=== PATIENT | female | born 1990 | race Caucasian/White ===

== ENCOUNTER 2016-11-21 17:33 | Emergency (ER) | payer OTHER ==
[~2016-11-21] VITALS: Ht 160 cm; Wt 89.4 kg
[2016-11-21 22:00] VITALS: BP 127/87
== END 2016-11-21 22:00 | disposition home or self-care (01) ==
LOC: ED 17:33
DX: M79.674 Pain in right toe(s) (principal); F32.9 Major depressive disorder, single episode, unspecified; W22.8XXA Striking against or struck by other objects, initial encounter; Y93.89 Activity, other specified; Y99.8 Other external cause status; Y92.89 Other specified places as the place of occurrence of the external cause

== ENCOUNTER 2017-08-05 14:47 | Emergency (ER) | payer OTHER ==
[~2017-08-05] VITALS: Ht 160 cm; Wt 79.4 kg
[2017-08-05 15:05] VITALS: Ht 160 cm; Wt 79.4 kg
[2017-08-05 16:48] VITALS: BP 114/67
== END 2017-08-05 16:48 | disposition home or self-care (01) ==
LOC: ED 14:47
DX: S80.862A Insect bite (nonvenomous), left lower leg, initial encounter (principal); S80.861A Insect bite (nonvenomous), right lower leg, initial encounter; S40.862A Insect bite (nonvenomous) of left upper arm, initial encounter; S40.861A Insect bite (nonvenomous) of right upper arm, initial encounter; S30.860A Insect bite (nonvenomous) of lower back and pelvis, initial encounter; W57.XXXA Bitten or stung by nonvenomous insect and other nonvenomous arthropods, initial encounter; Y93.89 Activity, other specified; Y92.89 Other specified places as the place of occurrence of the external cause; Y99.8 Other external cause status